=== PATIENT | female | born 1975 | race Caucasian/White ===

== ENCOUNTER 2019-07-04 12:47 | Outpatient (CLI) | payer MEDICAID, SELFPAY ==
--- NOTE | ~2019-07-04 | XR_ITS ---
XR lumbar spine 2-3V 07/04/2019 13:27 Indication: Low back pain Procedure: 3 views lumbar spine Comparison: No prior studies for comparison. Findings: Mild levocurvature of the lumbar spine. Vertebral body heights are maintained. No acute fra cture or traumatic malalignment. There is moderate disc narrowing at L5-S1. No evidence for spondylol isthesis. There are cholecystectomy clips. Sacral foramen are symmetric. Impression: 1: Mild lumbar spondylosis. Reviewed, dictated and finalized at location A. Impression: 1: Mild lumbar spondylosis.
--- NOTE | ~2019-07-04 | XR_ITS ---
XR thoracic spine 3V 07/04/2019 13:27 Indication: Back pain Procedure: 3 views thoracic spine Comparison: No prior studies for comparison. Findings: Vertebral body heights are maintained. There is mild thoracic spondylosis. No acute fractur e or traumatic malalignment. No paraspinal soft tissue abnormality. Normal thoracic alignment. Impression: 1: Mild thoracic spondylosis. Reviewed, dictated and finalized at location A. Impression: 1: Mild thoracic spondylosis.
[2019-07-04 14:22] LABS: Hematocrit 46.5 % (37.0-47.0); Hemoglobin 15.4 g/dL (12.0-15.0); Mean Corpuscular HGB Conc 33.1 g/dl (32-36); Mean Corpuscular Hemoglobin 29.1 pg (26-34); Mean Corpuscular Volume 87.7 fl (80-100); Mean Platelet Volume 10.5 fl (7.4-10.4); Platelet Count Result 305 k/mm3 (150-375); Red Cell Distribution Width 13.2 % (11.5-14.5); White Blood Count 13.3 K/mm3 (4.5-10.0)
[2019-07-04 14:24] LABS: Add Urine Microscopic? YES; Appearance Urine Clear (Clear); Bilirubin Urine Negative (Negative); Blood Urine Negative (Negative); Color Urine Yellow (Yellow); Glucose Urine UA 3+ mg/dL (Negative); Ketones Urine Trace mg/dL (Negative); Leukocyte Esterase Ur Negative LEU/UL (NEGATIVE); Mucus Urine Rare /lpf; Nitrate Urine Negative (Negative); Protein Urine Negative (Negative); RBC Urine 0-2 /hpf (0-2); Squamous Epithelial Cell Urine Rare /hpf (Few); Urobilinogen Urine Negative mg/dL (<2.0); WBC Urine 0-3 /hpf (0-3)
[2019-07-04 14:26] LABS: Specific Grav Ur 1.031 (1.001-1.035)
[2019-07-04 14:33] LABS: Hemoglobin A1C 10.4 % (<5.7)
[2019-07-04 14:36] LABS: Alanine Aminotransferase 34 U/L (4-35); Albumin Level 4.4 g/dL (3.5-5.1); Alkaline Phosphatase 58 U/L (38-126); Aspartate Amino Transferase 29 U/L (14-36); Bilirubin,Total 0.3 mg/dL (0.2-1.3); Blood Urea Nitrogen 12 mg/dL (7-17); Calcium 9.4 mg/dL (8.4-10.2); Carbon Dioxide 24 mmol/L (22-30); Chloride 102 mmol/L (98-107); Cholesterol 203 mg/dL (0-200); Estimated Glomerular Filt Rate > 60; Glucose 260 mg/dL (65-105); HDL Direct 55 mg/dL; Potassium 3.7 mmol/L (3.4-5.0); Sodium 134 mmol/L (137-145); Triglycerides 192 mg/dL (<150)
[2019-07-04 14:38] LABS: Creatinine Urine 68.8 mg/dL
[2019-07-04 14:47] LABS: LDL Cholesterol Direct 118 mg/dL
[2019-07-04 15:21] LABS: MALB Creatinine Ratio < 8.7 mg/g (0-30); Microalbumin Urine Random < 6.0 mg/L (0-16.7)
== END 2019-07-04 12:48 | disposition home or self-care (01) ==
LOC: ANHIMG 13:00
PROVIDERS: PCP Emergency Medicine; Visit Provider Emergency Medicine
DX: S39.92XA Unspecified injury of lower back, initial encounter (principal); M47.814 Spondylosis without myelopathy or radiculopathy, thoracic region; M47.816 Spondylosis without myelopathy or radiculopathy, lumbar region
CPT/HCPCS: 36415; 72072; 72100; 80053; 80061; 81001; 82043; 83036; 84439; 84443; 85027

== ENCOUNTER 2019-07-19 13:25 | Outpatient (CLI) | payer MEDICAID, SELFPAY ==
[2019-07-19 14:25] LABS: Hematocrit 43.2 % (37.0-47.0); Hemoglobin 14.7 g/dL (12.0-15.0); Mean Corpuscular Volume 88.2 fl (80-100); Mean Platelet Volume 10.5 fl (7.4-10.4); Platelet Count Result 294 k/mm3 (150-375); White Blood Count 9.6 K/mm3 (4.5-10.0)
== END 2019-07-19 13:26 | disposition home or self-care (01) ==
LOC: ANHLAB 13:27
PROVIDERS: PCP Emergency Medicine; Visit Provider Emergency Medicine
DX: D72.829 Elevated white blood cell count, unspecified (principal)
CPT/HCPCS: 36415; 85027

== ENCOUNTER 2020-04-09 22:09 | Emergency (ER) | payer OTHER, SELFPAY ==
[2020-04-09 22:12] VITALS: BP 175/93; PULSE 76; RESP 14; TEMP 36.7; O2SAT 100
[2020-04-09] MEDS: KETOROLAC 30 MG/ML VIAL (*BKC) IM (22:54)
--- NOTE | 2020-04-09 23:02 | ED.GENADULT ---
HPI - General Adult General Chief complaint: Unspecified Stated complaint: right sided facial pain Time Seen by Provider: 04/09/20 22:27 Source: patient Mode of arrival: ambulatory Limitations: no limitations History of Present Illness HPI narrative: Patient is a 44-year-old female complaining of sinus pain that started a few days ago. Patient seen her primary care physician was given Augmentin yesterday and was told to take Motrin for pain. Patient states the Motrin is not working and that is why she is here in the emergency room. Denies any lip, tongue, throat swelling. Denies any fever or chills. Related Data Home Medications Medication Instructions Recorded Confirmed amoxicillin-pot clavulanate tablet 04/09/20 blood sugar diagnostic [OneTouch 04/09/20 04/09/20 Ultra Blue Test Strip] glipizide mg PO 04/09/20 lisinopril 04/09/20 metformin mg 04/09/20 simvastatin mg 04/09/20 04/09/20 Allergies Allergy/AdvReac Type Severity Reaction Status Date / Time No Known Allergies Allergy Verified 04/09/20 22:48 Review of Systems Review of Systems: All systems reviewed & are unremarkable except as noted in HPI and below Constitutional: Constitutional: Denies body ache(s), Denies chills, Denies excessive sweating, Denies fatigue, Denies fever(s), Denies headache(s), Denies lethargy, Denies malaise, Denies weakness and Denies weight loss Eyes: Eyes: Denies blurry vision, Denies change in vision and Denies loss of vision ENT: Denies dizziness, Denies ear discharge, Denies headache(s), Denies lip swelling, Denies epistaxis, Denies neck pain, Denies throat swelling and Denies tongue swelling Cardiovascular: Cardiovascular: Denies chest pain, Denies chest pain at rest, Denies chest pain with activity, Denies diaphoresis, Denies rapid heart rate, Denies edema, Denies irregular heart rhythm, Denies lightheadedness, Denies palpitations, Denies dyspnea and Denies dyspnea on exertion Respiratory: Respiratory: Denies chest congestion, Denies cough, Denies hemoptysis, Denies dyspnea and Denies dyspnea on exertion Gastrointestinal: Gastrointestinal: Denies abdominal pain, Denies melena, Denies hematochezia, Denies diarrhea, Denies nausea, Denies vomiting and Denies hematemesis Musculoskeletal: Musculoskeletal: Denies abnormal gait, Denies deformity, Denies joint swelling, Denies limited range of motion, Denies neck pain and Denies numbness Neurologic: Denies Abnormal speech present, Denies abnormal gait, Denies confusion, Denies dizziness, Denies headache(s), Denies focal weakness, Denies loss of vision, Denies numbness, Denies Other visual disturbances, Denies Sensory deficit (Neuro) and Denies weakness Psychiatric: Psychiatric: Denies confusion, Denies depression, Denies auditory hallucinations, Denies homicidal ideation and Denies suicidal ideation Endocrine: Endocrine: Denies cold intolerance, Denies excessive sweating, Denies fatigue, Denies heat intolerance and Denies palpitations Hematologic/Lymphatic: Hematologic/Lymphatic: Denies easy bleeding and Denies easy bruising Allergic/Immunologic: Allergic/Immunologic: Denies lip swelling, Denies throat swelling and Denies tongue swelling Exam Const: General: cooperative, healthy appearing, comfortable, no acute distress, well developed, alert and awake; No confusion Orientation/consciousness: oriented to person, oriented to place, oriented to time, patient oriented x3 and No confusion Limitations: no limitations HENMT: Head: normal to inspection, normocephalic and atraumatic Ears: hearing grossly normal bilaterally, TM normal on the right and TM normal on the left General nose exam: Normal external nose present, Normal nares present and No nasal discharge present Face and sinus: sinuses nontender (Tenderness on palpation maxillary sinus bilaterally) Mouth: Yes Normal oral and palatal mucosa present, Yes lip normal, Yes tongue normal and Yes oropharynx normal Throat: posterior or
[2020-04-09] MEDS: HYDROcodone/acetaminophen (*CRX) 5-325 MG TABLET 1 TAB PO (23:15)
[2020-04-09 23:17] VITALS: BP 145/69; PULSE 76; RESP 16; O2SAT 100
== END 2020-04-09 23:19 | disposition home or self-care (01) ==
PROVIDERS: Emergency Provider Emergency Medicine; PCP Emergency Medicine
DX: J01.00 Acute maxillary sinusitis, unspecified (principal); Z79.84 Long term (current) use of oral hypoglycemic drugs
CPT/HCPCS: 96372; 99283; A9270; J1885

== ENCOUNTER 2020-05-21 12:37 | Outpatient (CLI) | payer OTHER, SELFPAY ==
[2020-05-21 13:08] LABS: Hematocrit 41.1 % (37.0-47.0); Hemoglobin 13.8 g/dL (12.0-15.0); Mean Corpuscular HGB Conc 33.6 g/dl (32-36); Mean Corpuscular Hemoglobin 29.3 pg (26-34); Mean Corpuscular Volume 87.3 fl (80-100); Mean Platelet Volume 9.5 fl (7.4-10.4); Platelet Count Result 320 k/mm3 (150-375); Red Blood Count 4.71 M/mm3 (4.2-5.4); Red Cell Distribution Width 13.5 % (11.5-14.5); White Blood Count 8.7 K/mm3 (4.5-10.0)
[2020-05-21 13:16] LABS: Hemoglobin A1C 5.9 % (<5.7)
[2020-05-21 13:32] LABS: LDL Cholesterol Direct 40 mg/dL
[2020-05-21 13:33] LABS: Alanine Aminotransferase 26 U/L (4-35); Albumin Level 4.2 g/dL (3.5-5.1); Alkaline Phosphatase 36 U/L (38-126); Anion Gap 5 mmol/L (8-16); Aspartate Amino Transferase 29 U/L (14-36); Bilirubin,Total 0.5 mg/dL (0.2-1.3); Blood Urea Nitrogen 13 mg/dL (7-17); Calcium 8.7 mg/dL (8.4-10.2); Carbon Dioxide 28 mmol/L (22-30); Chloride 105 mmol/L (98-107); Cholesterol 113 mg/dL (0-200); Estimated Glomerular Filt Rate > 60; Glucose 105 mg/dL (65-105); HDL Direct 61 mg/dL; Potassium 3.7 mmol/L (3.4-5.0); Sodium 138 mmol/L (137-145); Triglycerides 85 mg/dL (<150)
[2020-05-21 13:38] LABS: Creatinine Urine 264.7 mg/dL
[2020-05-21 13:42] LABS: MALB Creatinine Ratio 3.8 mg/g (0-30)
[2020-05-21 13:50] LABS: Thyroid Stimulating Hormone 0.855 uIU/mL (0.465-4.680)
[2020-05-21 13:54] LABS: Vitamin D 25 Hydroxy 31.7 ng/mL
== END 2020-05-21 12:38 | disposition home or self-care (01) ==
PROVIDERS: PCP Emergency Medicine; Visit Provider Emergency Medicine
DX: E78.5 Hyperlipidemia, unspecified (principal); I10 Essential (primary) hypertension; Z00.00 Encounter for general adult medical examination without abnormal findings
CPT/HCPCS: 36415; 80053; 80061; 82043; 82306; 83036; 84439; 84443; 85027

== ENCOUNTER → 2020-07-31 12:21 | Outpatient (CLI) | payer OTHER, SELFPAY ==
--- NOTE | ~2020-07-31 | XR_ITS ---
EXAMINATION: XR femur LT min 2V, XR ankle LT min 3V, XR tibia fibula LT 2V DATE: 07/31/2020 12:59 INDICATION: Left lower limb injury with pain to the lateral mid left femur, pain and swelling at the mid to distal left lower leg and pain at the lateral left ankle. TECHNIQUE: 1. Overlapping proximal and distal, AP and lateral views of the left femur were obtained. 2. AP and lateral views of the left tibia and fibula were obtained. 3. AP and lateral views of the left ankle were obtained. COMPARISON: None FINDINGS: Normal alignment and joint spaces from the left hip through the left midfoot. No fracture. No left k nee or ankle joint effusions. Large plantar calcaneal spur and small Achilles calcaneal spur. Soft ti ssues are unremarkable. IMPRESSION: 1. No acute osseous abnormality in the left lower limb. Reviewed, dictated and finalized at location A. IMPRESSION: 1. No acute osseous abnormality in the left lower limb. IMPRESSION: 1. No acute osseous abnormality in the left lower limb.
== END ==
PROVIDERS: PCP Emergency Medicine; Visit Provider Emergency Medicine
DX: S89.92XA Unspecified injury of left lower leg, initial encounter (principal); M79.89 Other specified soft tissue disorders
CPT/HCPCS: 73552; 73590; 73610

== ENCOUNTER 2021-09-30 13:28 | Emergency (ER) | payer OTHER, SELFPAY ==
--- NOTE | 2021-09-30 13:35 | ED.SKABFB ---
HPI - Skin/Abscess/Foreign Bdy General Chief complaint: Skin/Abscess/Foreign Body Stated complaint: cyst Time Seen by Provider: 09/30/21 13:35 Source: patient and RN notes reviewed Mode of arrival: ambulatory Limitations: no limitations History of Present Illness HPI narrative: 46-year-old female presents to the [facility] with complaints of redness, swelling and cyst. She reports it started as a pimple 2 to 3 weeks ago over the last 2 to 3 days has become larger, more painful and hot to touch. Denies any drainage. Redness is 2-1/2 x 3-1/2 cm with a 1-1/2 cm fluctuant center. Related Data Home Medications Medication Instructions Recorded Confirmed blood sugar diagnostic (OneTouch 04/09/20 04/09/20 Ultra Blue Test Strip) glipizide 5 mg tablet, extended 5 mg PO DIRECTED 04/09/20 09/30/21 release 24 hr lisinopril 10 mg tablet 10 mg DIRECTED 04/09/20 09/30/21 metformin 500 mg tablet 500 mg DIRECTED 04/09/20 09/30/21 simvastatin 20 mg tablet 20 mg DIRECTED 04/09/20 09/30/21 Allergies Allergy/AdvReac Type Severity Reaction Status Date / Time No Known Allergies Allergy Verified 04/09/20 22:48 Review of Systems Review of Systems: All systems reviewed & are unremarkable except as noted in HPI and below Constitutional: Constitutional: Reports no additional constitutional complaints, Denies chills and Denies fever(s) Eyes: Eyes: Reports no additional eye complaints ENT: Reports system reviewed and no additional complaints, except as documented Cardiovascular: Cardiovascular: Reports no additional cardiovascular complaints Respiratory: Respiratory: Reports no additional respiratory complaints Gastrointestinal: Gastrointestinal: Reports no additional gastrointestinal complaints Musculoskeletal: Musculoskeletal: Reports no additional musculoskeletal complaints Integumentary/Breasts: Skin/Breast: Reports as per HPI and Reports erythema Neurologic: Reports system reviewed and no additional complaints, except as documented Psychiatric: Psychiatric: Reports no additional psychiatric complaints Allergic/Immunologic: Allergic/Immunologic: Reports no additional allergic/immunologic complaints PMF Past Medical History Medical History (Updated 10/01/21 @ 08:28 by Gely Zhou APRN) Diabetes High cholesterol Hypertension Social History Social History (Updated 10/01/21 @ 08:27 by Gely Zhou APRN) Gender identity (if verbalized by the patient): Female Comments At the time of my signature, I reviewed and agree with the nursing past medical, surgical, social, and family history. There is no relevant family history pertinent to the patient complaint. Exam Const: General: healthy appearing, no acute distress and alert Nutritional Appearance: well nourished and obese Orientation/consciousness: patient oriented x3 Limitations: no limitations HENMT: Head: normal to inspection Ears: external ears normal Eyes: General: appearance normal, both eyes and all related structures Pupils: Equal, round and reactive pupils present Neck: Neck: normal visual inspection, no lymphadenopathy and no meningeal signs Chest: Chest palpation & inspection: normal inspection of the chest Resp: Effort & Inspection: normal respiratory effort and no use of accessory muscles Auscultation: clear to auscultation bilaterally, no crackles, no rales, no rhonchi and no wheezes Cardio: Rate: regular rate Rhythm: regular rhythm GI: GI Palp: Yes Soft to palpation and No Tenderness to palpation present (GI) Back/Spine/Pelvis: Cervical Spine: normal cervical lordosis Thoracic/Lumbar Spine: thoracic and lumbar spine normal to inspection Skin: General skin exam: normal color Rashes: no rashes Wounds: no wounds Other: Left mid outer arm 2-1/2 x 3-1/2 erythemic area with swelling, increased warmth center is raised, 1-1/2 cm, fluctuant center Neuro: General: patient oriented x3, moves all extremities, no mening
[2021-09-30 13:36] VITALS: BP 118/74; PULSE 74; RESP 16; TEMP 37.2; O2SAT 98
== END 2021-09-30 14:10 | disposition home or self-care (01) ==
PROVIDERS: Emergency Provider Nurse Practitioner
DX: L03.114 Cellulitis of left upper limb (principal); L72.9 Follicular cyst of the skin and subcutaneous tissue, unspecified; E11.9 Type 2 diabetes mellitus without complications; E78.00 Pure hypercholesterolemia, unspecified; I10 Essential (primary) hypertension
CPT/HCPCS: 10060; 99213; G0463

== ENCOUNTER 2021-10-12 16:21 | Emergency (ER) | payer OTHER, SELFPAY ==
[2021-10-12 16:42] VITALS: BP 151/97; PULSE 84; RESP 18; TEMP 36.9; O2SAT 100
--- NOTE | 2021-10-12 17:48 | ED.SKABFB ---
HPI - Skin/Abscess/Foreign Bdy General Chief complaint: Skin/Abscess/Foreign Body Stated complaint: Abcess L upper arm Time Seen by Provider: 10/12/21 17:34 History of Present Illness HPI narrative: Patient is a 46-year-old female here for evaluation of a lesion to her left lateral arm for the past 2 weeks. Patient states that the lesion began as a pimple over her left lateral arm, she states that she picked up it and squeezed it and it resolved. The lesion came back several days later and was larger in size and more painful. She was evaluated at an urgent care facility where it was attempted to be lanced, but they did not return any purulent material. She was placed on antibiotics which did improve the pain and swelling, but she states after finishing the weeklong course, the pain and swelling returned and is now increased in size for the second time. She denies any fevers or chills, nausea or vomiting. She has a history of prediabetes, on metformin, states her sugars are well controlled. Related Data Home Medications Medication Instructions Recorded Confirmed blood sugar diagnostic (OneTouch 04/09/20 04/09/20 Ultra Blue Test Strip) glipizide 5 mg tablet, extended 5 mg PO DIRECTED 04/09/20 09/30/21 release 24 hr lisinopril 10 mg tablet 10 mg DIRECTED 04/09/20 09/30/21 metformin 500 mg tablet 500 mg DIRECTED 04/09/20 09/30/21 simvastatin 20 mg tablet 20 mg DIRECTED 04/09/20 09/30/21 Allergies Allergy/AdvReac Type Severity Reaction Status Date / Time No Known Allergies Allergy Verified 10/12/21 18:29 Review of Systems Review of Systems: Gen: Denies fevers or chills Eyes: Denies eye pain or visual change ENT: Denies congestion Respiratory: Denies shortness of breath or cough CV: Denies chest pain or palpitations GI: Denies abdominal pain nausea, emesis or diarrhea : denies burning, urgency, frequency or hematuria Musculoskeletal: Denies back pain or muscle pain Neuro: Denies numbness, tingling, weakness or focal weakness Skin: reports abscess to left arm. Except as documented, all other systems reviewed and negative [facility] Past Medical History Medical History Diabetes High cholesterol Hypertension Social History Social History (Updated 10/01/21 @ 08:27 by Gely Zhou APRN) Gender identity (if verbalized by the patient): Female Exam Narrative: Gen: Alert, oriented, no acute distress Eyes: EOMI, no icterus Pulm: Respirations even and unlabored, symmetric thorax expansion, no audible stridor or visible cyanosis CV: Regular rate per telemetry GI: No distension, no voluntary/involuntary guarding Neuro: AOx4, moves all extremities without apparent difficulty or weakness, follows commands Skin: Patient has a 3cm area of fluctuance and induration to left lateral upper arm that is tender to palpation and warm to touch. Psych: Normal mood/affect, insight/judgement good, adequate fund of knowledge, recent/remote memory intact Course Vital Signs Vital signs: Vital Signs Temperature 98.4 F 10/12/21 16:42 Pulse Rate 84 10/12/21 16:42 Respiratory Rate 18 10/12/21 16:42 Blood Pressure 151/97 H 10/12/21 16:42 Pulse Oximetry 100 10/12/21 16:42 Oxygen Delivery Room Air 10/12/21 16:42 Temperature 98.4 F 10/12/21 16:42 Pulse Rate 84 10/12/21 16:42 Respiratory Rate 18 10/12/21 16:42 Blood Pressure 151/97 H 10/12/21 16:42 Pulse Oximetry 100 10/12/21 16:42 Oxygen Delivery Room Air 10/12/21 16:42 Procedures Abscess I/D upper extremity: Date of Incision: 10/12/21 Time of Incision: 19:00 Side (if applicable): left Sedation/analgesia: other (ativan) Local Anesthetic: lidocaine 1% and with epi Amount of anesthesia used (mL): 4 Technique: incised with #11 blade and probed loculations Amount of fluid expressed (mL): 5 Irrigation: Yes
[2021-10-12] MEDS: IBUPROFEN 600 MG TABLET PO (18:31)
[2021-10-12] MEDS: LORazepam (*CRX) 0.5 MG TABLET PO (18:32)
[2021-10-12 19:22] VITALS: BP 136/87; PULSE 76; RESP 18; TEMP 36.9; O2SAT 98
== END 2021-10-12 19:17 | disposition home or self-care (01) ==
PROVIDERS: Emergency Provider Emergency Medicine; PCP Emergency Medicine
DX: L02.414 Cutaneous abscess of left upper limb (principal); R73.03 Prediabetes; E78.00 Pure hypercholesterolemia, unspecified; I10 Essential (primary) hypertension; Z79.84 Long term (current) use of oral hypoglycemic drugs
CPT/HCPCS: 10060; 99283; A9270

== ENCOUNTER 2024-12-12 10:54 | Emergency (ER) | payer SELFPAY ==
[2024-12-12 11:42] VITALS: BP 154/85; PULSE 73; RESP 20; TEMP 36.7; O2SAT 98
--- NOTE | 2024-12-12 12:35 | ED.GENADULT ---
HPI - General Adult General Chief complaint: Skin/Abscess/Foreign Body Stated complaint: bed bug bites Time Seen by Provider: 12/12/24 11:45 History of Present Illness HPI narrative: Kath Dos Santos is a 49-year-old female who presents with reports of staying in a hotel about a week ago on and has a lot of bug bites to her extremities upper and lower mostly. She has been on for about a week and her works at their bug bites from bedbugs. She states that she still is having continued itching to her bites and she also feels like she started hit the yeast infection her skin folds on her chest and is asking for some nystatin. She states that she is not on any medications daily she has not been taking any medications for her denies any other symptoms. Related Data Home Medications ?Medication ?Instructions ?Recorded ?Confirmed ?Last Taken ?Type blood sugar diagnostic (OneTouch 04/09/20 04/09/20 Unknown History Ultra Blue Test Strip) glipizide 5 mg tablet, extended 5 mg PO DIRECTED 04/09/20 09/30/21 Unknown History release 24 hr lisinopril 10 mg tablet 10 mg DIRECTED 04/09/20 09/30/21 Unknown History metformin 500 mg tablet 500 mg DIRECTED 04/09/20 09/30/21 Unknown History simvastatin 20 mg tablet 20 mg DIRECTED 04/09/20 09/30/21 Unknown History Allergies Allergy/AdvReac Type Severity Reaction Status Date / Time No Known Allergies Allergy Verified 12/12/24 11:46 Review of Systems Review of Systems: All systems reviewed & are unremarkable except as noted in HPI and below PMFSH Past Medical History Medical History High cholesterol Hypertension Diabetes Social History Social History Gender identity (if verbalized by the patient): Female Exam Narrative: GENERAL: Well-appearing, well-nourished, and in no acute distress. HEAD: Normocephalic, atraumatic. EYES: PERRLA and EOMI. ENT: Nares clear, no rhinorrhea or epistaxis. Mucous membranes moist. NECK: Supple. No adenopathy or masses. No carotid bruits or JVD CHEST: No respiratory distress. HEART: Normal peripheral pulses. ABDOMEN: Soft, nontender, nondistended, normal active bowel sounds. EXTREMITIES: Normal range of motion. No edema. SKIN: Warm, multiple scattered papules with irritation scratch lorenzo noted throughout with some mild erythema no drainage. Under the breasts are noted to have excoriation consistent with yeast. NEURO: No focal deficits. Alert and oriented x3. PSYCH: Normal mood and affect. Course Vital Signs Vital signs: Vital Signs Temperature 36.7 C 12/12/24 11:42 Pulse Rate 73 12/12/24 11:42 Respiratory Rate 20 12/12/24 11:42 Blood Pressure 154/85 H 12/12/24 11:42 Pulse Oximetry 98 12/12/24 11:42 Oxygen Delivery Room Air 12/12/24 11:42 Temperature 36.7 C 12/12/24 11:42 Pulse Rate 73 12/12/24 11:42 Respiratory Rate 20 12/12/24 11:42 Blood Pressure 154/85 H 12/12/24 11:42 Pulse Oximetry 98 12/12/24 11:42 Oxygen Delivery Room Air 12/12/24 11:42 Medical Decision Making MDM Narrative Medical decision making narrative: Based on history and exam this is likely bug bites contact dermatitis and area under her skin folds on her chest is likely [place] Will start her on and cetirizine, prednisone and topical triamcinolone and nystatin powder for the [place] area Encouraged to continue medications as prescribed follow up with the primary care doctor as needed return for any new or worsening symptoms. Medical Records Medical records reviewed: Yes I reviewed the external patient's medical records. Vital Signs Vital Signs: Vital Signs Temperature 36.7 C 12/12/24 11:42 Pulse Rate 73 12/12/24 11:42 Respiratory Rate 20 12/12/24 11:42 Blood Pressure 154/85 H 12/12/24 11:42 Pulse Oximetry 98 12/12/24 11:42 Oxygen Delivery Room Air 12/12/24 11:42 Temperature 36.7 C 12/12/24 11:42 Pulse Rate 73 12/12/24 11:42 Respiratory Rate 20 12/12/24 11:42 Blood Pressure 154/85 H 12/12/24 11:42 Pulse Oximetry 98 12/12/24 11:42 Oxygen Delivery Room Air 12/12/24 11:42 Vitals reviewed by me Lab Data Lab results reviewed: Yes I reviewed the patient's lab results. Discharge Plan Discharge Clinical Impression: Candidiasis Contact dermatitis Qualifiers: Contact dermatitis type: unspecified Contact dermatitis trigger: unspecified trigger Qualified Code(s): L25.9 - Unspecified contact dermatitis, unspecified cause Bug bite Qualifiers: Encounter type: initial encounter Qualified Code(s): W57.XXXA - Bitten or stung by nonvenomous insect and other nonvenomous arthropods, initial encounter Patient Disposition: Home Condition: Stable Instructions: Antibiotic Form Additional Instructions: Continue to take the cetirizine once daily for the itching, start taking the prednisone Dosepak tomorrow since you did receive steroids today, start using the triamcinolone topical ointment to the affected areas twice daily for the next 1-2 week. You may also start taking the nystatin powder to the skin folds with the yeast concerns. Please follow-up with primary care doctor in the next week to make sure you are improving if he should develop any new or worsening symptoms otherwise return to the emergency department. Patient Language: Setswana Prescriptions: New cetirizine 10 mg tablet 10 mg PO DAILY Qty: 30 0RF prednisone 5 mg tablets,dose pack See Rx Instructions .ROUTE .COMPLEX Qty: 21 0RF Rx Instructions: orally per package directions triamcinolone acetonide 0.1 % ointment 1 applic topical BID Qty: 454 1RF Rx Instructions: apply to affected areas twice daily for 1-2 weeks, do not put on face or genitals nystatin 100,000 unit/gram powder 1 applic topical TID Qty: 60 1RF Rx Instructions: apply to affected areas as ordered for 1 week No Action cephalexin 500 mg capsule 500 mg PO Q8H 7 Days Qty: 21 0RF metformin 500 mg tablet 500 mg DIRECTED glipizide 5 mg tablet extended release 24hr 5 mg PO DIRECTED (DME) OneTouch Ultra Blue Test Strip Strip MISCELLANEOUS simvastatin 20 mg tablet 20 mg DIRECTED lisinopril 10 mg tablet 10 mg DIRECTED doxycycline hyclate 100 mg capsule 100 mg PO BID 5 Days Qty: 10 0RF Follow-up/Referrals: Marvin Dunlap MD [Primary Care Provider, [facility]] - 1 Week Time of Disposition: 12:50
[2024-12-12] MEDS: LORATADINE 10 MG TABLET PO (12:41)
== END 2024-12-12 13:03 | disposition home or self-care (01) ==
PROVIDERS: Emergency Provider Nurse Practitioner Family; PCP Emergency Medicine
DX: L25.9 Unspecified contact dermatitis, unspecified cause (principal); T14.8XXA Other injury of unspecified body region, initial encounter; W57.XXXA Bitten or stung by nonvenomous insect and other nonvenomous arthropods, initial encounter; B37.2 Candidiasis of skin and nail
CPT/HCPCS: 99283; A9270; J7512